=== PATIENT | female | born 2005 | race Caucasian/White ===

== ENCOUNTER 2025-04-30 17:51 | Emergency (ER) | payer OTHER ==
--- NOTE | 2025-04-30 18:37 | ED ---
Nausea/Vomiting/Diarrhea HPI - General Chief complaint: Nausea/Vomiting/Diarrhea Stated complaint: Vomiting, blood in vomit Time Seen by Provider: 04/30/25 18:05 Source: patient, family, RN notes reviewed Mode of arrival: ambulatory Limitations: no limitations - History of Present Illness Initial comments: This is a 19-year-old female with no reported medical conditions presenting to emergency room with mother with referral from urgent care for concerns of persistent nausea and vomiting over the past 48 hours. Patient states that she is unable to keep down foods and liquids and is concerned that she is dehydrated she has not been urinating. she endorses epigastric abdominal pain before and after emesis. Denies previous surgeries of the abdomen. Denies urinary complaints, bowel habit changes, fevers, chills, cough, rhinorrhea, congestion. She has been taking her mother Zofran that has been mildly helping with her nausea and vomiting. - Related Data Previous Rx's Medication Instructions Recorded Ondansetron Odt [Zofran Odt] 4 mg PO Q8HR PRN #21 tab 04/30/25 Allergies Allergy/AdvReac Type Severity Reaction Status Date / Time No Known Allergies Allergy Verified 04/30/25 18:22 Review of Systems ROS Statement: Those systems with pertinent positive or pertinent negative responses have been documented in the HPI. ROS Other: All systems not noted in ROS Statement are negative. Past Medical History Past Medical History: No Reported History History of Any Multi-Drug Resistant Organisms: None Reported Additional Past Surgical History / Comment(s): cystectomy Past Psychological History: No Psychological Hx Reported Smoking Status: Vaper Past Alcohol Use History: None Reported Past Drug Use History: Marijuana General Exam - General Exam Comments Initial Comments: Visual Physical Exam Vital signs reviewed General: Well-appearing, nontoxic, no acute distress. Head: Normocephalic, atraumatic Eyes: PERRLA, EOMI ENT: Airway patent Chest: Nonlabored breathing Skin: No visual rash, normal skin tone Neuro: Alert and oriented 3 Musculoskeletal: No gross abnormalities Limitations: no limitations Respiratory exam: Present: normal lung sounds bilaterally. Absent: respiratory distress, wheezes, rales, rhonchi, stridor Cardiovascular Exam: Present: regular rate, normal rhythm, normal heart sounds. Absent: systolic murmur, diastolic murmur, rubs, gallop, clicks GI/Abdominal exam: Present: soft, tenderness (Epigastric), normal bowel sounds. Absent: distended, guarding, rebound, rigid Extremities exam: Present: normal inspection, full ROM, normal capillary refill. Absent: tenderness, pedal edema, joint swelling, calf tenderness Back exam: Present: normal inspection. Absent: CVA tenderness (R), CVA tenderness (L) Course Vital Signs 04/30/25 04/30/25 04/30/25 18:15 21:05 21:06 Temperature 98.2 F 99.3 F Pulse Rate 102 H 81 Respiratory 22 18 Rate Blood Pressure 110/74 112/78 O2 Sat by Pulse 100 100 Oximetry Medical Decision Making - Medical Decision Making Was pt. sent in by a medical professional or institution (, PA, C [employer] DEVELOPER, urgent care, hospital, or long term...) When possible be specific @ -Patient is advised by urgent care report to the emergency department for the evaluation of persistent nausea and vomiting. Did you speak to anyone other than the patient for history (EMS, parent, family, police, friend...)? What history was obtained from this source @ -Mother states that she has been giving the patient her Zofran to help with intermittent nausea. Did you review nursing and triage notes (agree or disagree)? Why? @ -I reviewed and agree with nursing and triage notes Were old charts reviewed (outside hosp., previous admission, EMS record, old EKG, old radiological studies, urgent care reports/EKG's, long term records)? Report findings @ -No old charts were reviewed Differential Diagnosis (chest pain, altered mental status, abdominal pain women, abdominal pain men, vaginal bleeding, weakness, fever, dyspnea, syncope, headache, dizziness, GI bleed, back pain, seizure, CVA, palpatations, mental health, musculoskeletal)? @ -Differential Abdominal Pain Women: Appendicitis, Cholecystitis, diverticulosis, ischemic bowel, pancreatitis, hepatitis, UTI, gastroenteritis, AAA, incarcerated hernia, bowel obstruction, constipation, inflammatory bowel, hepatitis, peptic ulcer disease, splenic infarction, perforated viscus, vulvitis, ovarian torsion, PID, kidney stone, placenta abruption, this is not meant to be an all-inclusive list EKG interpreted by me (3pts min.). @ -None X-rays interpreted by me (1pt min.). @ -X-ray KUB nonobstructive bowel gas pattern. CT interpreted by me (1pt min.). @ -None done U/S interpreted by me (1pt. min.). @ -None done What testing was considered but not performed or refused? (CT, X-rays, U/S, labs)? Why? @ -None What meds were considered but not given or refused? Why? @ -None Did you discuss the management of the patient with other professionals (professionals i.e. DrRadha, PA, C [employer] DEVELOPER, lab, RT, psych nurse, social sciences chair, ordering box operator, teacher, radio division officer, senior case manager)? Give summary @ -No Was smoking cessation discussed for >3mins.? @ -No Was critical care preformed (if so, how long)? @ -No Were there social determinants of health that impacted care today? How? (Homelessness, low income, unemployed, alcoholism, drug addiction, transportation, low edu. Level, literacy, decrease access to med. care, senior care, rehab)? @ -No Was there de-escalation of care discussed even if they declined (Discuss DNR or withdrawal of care, Hospice)? DNR status @ -No What co-morbidities impacted this encounter? (DM, HTN, Smoking, COPD, CAD, Cancer, CVA, ARF, Chemo, Hep., AIDS, mental health diagnosis, sleep apnea, morbid obesity)? @ -None Was patient admitted / discharged? Hospital course, mention meds given and route, prescriptions, significant lab abnormalities, going to OR and other pertinent info. @ -Discharge. 19-year-old female presenting to emergency room with referral from urgent care for concern plaints of persistent nausea and vomiting over the past 48 hours. Overall patient is well-appearing in no signs distress on my evaluation. Patient has mild epigastric tenderness palpation. She is provided with IV fluids in addition to Protonix and Zofran. Patient's laboratory testing is essentially unremarkable. Urine is concerning for dehydration with 4+ ketones however no signs infection. hCG is negative. Patient is positive for marijuana. Negative for COVID, flu, RSV. X-ray of the abdomen is unremarkable. On reevaluation after medications patient states that she is feeling well. Recommend that she discontinue marijuana use and follow a liquid diet over the next 24 hours. She is provided with prescription for Zofran. Case discussed with Dr. Bayudan Undiagnosed new problem with uncertain prognosis? @ -No Drug Therapy requiring intensive monitoring for toxicity (Heparin, Nitro, Insulin, Cardizem)? @ -No Were any procedures done? @ -No Diagnosis/symptom? @ -Acute nausea and vomiting Acute, or Chronic, or Acute on Chronic? @ -Acute Uncomplicated (without systemic symptoms) or Complicated (systemic symptoms)? @ -Uncomplicated Side effects of treatment? @ -No Exacerbation, Progression, or Severe Exacerbation? @ -No Poses a threat to life or bodily function? How? (Chest pain, [place], [place], pneumonia, PE, COPD, DKA, ARF, appy, cholecystitis, CVA, Diverticulitis, Homicidal, Suicidal, threat to staff... and all critical care pts) @ -No - Lab Data Result diagrams: 04/30/25 19:31 04/30/25 19:31 Lab Results 04/30/25 04/30/25 04/30/25 Range/Units 19:31 19:31 21:05 WBC 10.84 H (4.50-10.00) 10*3/uL RBC 5.24 H (4.10-5.20) 10*6/uL Hgb 11.0 L (12.0-15.0) g/dL Hct 34.0 L (37.2-46.3) % MCV 64.9 L (80.0-97.0) fL MCH 21.0 L (27.0-32.0) pg MCHC 32.4 (32.0-37.0) g/dL Plt Count 252 (140-440) 10*3/uL Immature Gran % (Auto) 0.5 % Neutrophils % 83.3 % Lymphocytes % 10.0 % Monocytes % 5.8 % Eosinophils % 0.1 % Basophils % 0.3 % Immature Gran # 0.05 H (0.00-0.04) 10*3/uL Neutrophils # 9.04 H (1.80-7.70) 10*3/uL Lymphocytes # 1.08 (0.90-5.00) 10*3/uL Monocytes # 0.63 (0.20-1.00) 10*3/uL Eosinophils # 0.01 L (0.04-0.35) 10*3/uL Basophils # 0.03 (0.00-0.10) 10*3/uL Immature Plt Fraction 7.8 H (1.1-6.1) % Sodium 143 (137-145) mmol/L Potassium 3.4 L (3.5-5.1) mmol/L Chloride 103 (98-107) mmol/L Carbon Dioxide 23 (22-30) mmol/L Anion Gap 17 mmol/L BUN 11 (7-17) mg/dL Creatinine 0.69 (0.52-1.04) mg/dL Est GFR (CKD-EPI)AfAm >90 (>60 ml/min/1.73 sqM) Est GFR (CKD-EPI)NonAf >90 (>60 ml/min/1.73 sqM) Glucose 103 H (74-99) mg/dL Calcium 10.5 H (8.4-10.2) mg/dL Magnesium 2.1 (1.6-2.3) mg/dL Total Bilirubin 2.4 H (0.2-1.3) mg/dL AST 26 (14-36) U/L ALT 24 (4-34) U/L Alkaline Phosphatase 51 (38-126) U/L Total Protein 8.5 H (6.3-8.2) g/dL Albumin 5.7 H (3.5-5.0) g/dL Lipase 127 (23-300) U/L Urine Color Urine Appearance (Clear) Urine pH (5.0-8.0) Ur Specific Meta (1.001-1.035) Urine Protein (Negative) Urine Glucose (UA) (Negative) Urine Ketones (Negative) Urine Blood (Negative) Urine Nitrite (Negative) Urine Bilirubin (Negative) Urine Urobilinogen (<2.0) mg/dL Ur Leukocyte Esterase (Negative) Urine RBC (0-5) /hpf Urine WBC (0-5) /hpf Ur Squamous Epith Cells (0-4) /hpf Urine Mucus (None) /hpf Urine HCG, Qual (Not Detectd) Urine Opiates Screen (NotDetected) Ur Oxycodone Screen (NotDetected) Urine Methadone Screen (NotDetected) Ur Barbiturates Screen (NotDetected) U Tricyclic Antidepress (NotDetected) Ur Phencyclidine Scrn (NotDetected) Ur Amphetamines Screen (NotDetected) U Methamphetamines Scrn (NotDetected) U Benzodiazepines Scrn (NotDetected) Urine Cocaine Screen (NotDetected) U Marijuana (THC) Screen (NotDetected) Influenza Type A (PCR) Not Detected (Not Detectd) Influenza Type B (PCR) Not Detected (Not Detectd) RSV (PCR) Not Detected (Not Detectd) SARS-CoV-2 (PCR) Not Detected (Not Detectd) 04/30/25 04/30/25 04/30/25 Range/Units 21:19 21:19 21:19 WBC (4.50-10.00) 10*3/uL RBC (4.10-5.20) 10*6/uL Hgb (12.0-15.0) g/dL Hct (37.2-46.3) % MCV (80.0-97.0) fL MCH (27.0-32.0) pg MCHC (32.0-37.0) g/dL Plt Count (140-440) 10*3/uL Immature Gran % (Auto) % Neutrophils % % Lymphocytes % % Monocytes % % Eosinophils % % Basophils % % Immature Gran # (0.00-0.04) 10*3/uL Neutrophils # (1.80-7.70) 10*3/uL Lymphocytes # (0.90-5.00) 10*3/uL Monocytes # (0.20-1.00) 10*3/uL Eosinophils # (0.04-0.35) 10*3/uL Basophils # (0.00-0.10) 10*3/uL Immature Plt Fraction (1.1-6.1) % Sodium (137-145) mmol/L Potassium (3.5-5.1) mmol/L Chloride (98-107) mmol/L Carbon Dioxide (22-30) mmol/L Anion Gap mmol/L BUN (7-17) mg/dL Creatinine (0.52-1.04) mg/dL Est GFR (CKD-EPI)AfAm (>60 ml/min/1.73 sqM) Est GFR (CKD-EPI)NonAf (>60 ml/min/1.73 sqM) Glucose (74-99) mg/dL Calcium (8.4-10.2) mg/dL Magnesium (1.6-2.3) mg/dL Total Bilirubin (0.2-1.3) mg/dL AST (14-36) U/L ALT (4-34) U/L Alkaline Phosphatase (38-126) U/L Total Protein (6.3-8.2) g/dL Albumin (3.5-5.0) g/dL Lipase (23-300) U/L Urine Color Yellow Urine Appearance Cloudy H (Clear) Urine pH 6.5 (5.0-8.0) Ur Specific Meta 1.019 (1.001-1.035) Urine Protein 1+ H (Negative) Urine Glucose (UA) Negative (Negative) Urine Ketones 4+ H (Negative) Urine Blood Trace H (Negative) Urine Nitrite Negative (Negative) Urine Bilirubin Negative (Negative) Urine Urobilinogen <2.0 (<2.0) mg/dL Ur Leukocyte Esterase Moderate H (Negative) Urine RBC 8 H (0-5) /hpf Urine WBC 5 (0-5) /hpf Ur Squamous Epith Cells 8 H (0-4) /hpf Urine Mucus Few H (None) /hpf Urine HCG, Qual Not Detected (Not Detectd) Urine Opiates Screen Not Detected (NotDetected) Ur Oxycodone Screen Not Detected (NotDetected) Urine Methadone Screen Not Detected (NotDetected) Ur Barbiturates Screen Not Detected (NotDetected) U Tricyclic Antidepress Not Detected (NotDetected) Ur Phencyclidine Scrn Not Detected (NotDetected) Ur Amphetamines Screen Not Detected (NotDetected) U Methamphetamines Scrn Not Detected (NotDetected) U Benzodiazepines Scrn Not Detected (NotDetected) Urine Cocaine Screen Not Detected (NotDetected) U Marijuana (THC) Screen Detected H (NotDetected) Influenza Type A (PCR) (Not Detectd) Influenza Type B (PCR) (Not Detectd) RSV (PCR) (Not Detectd) SARS-CoV-2 (PCR) (Not Detectd) Disposition Clinical Impression: Nausea and vomiting Disposition: HOME SELF-CARE Condition: Stable Instructions (If sedation given, give patient instructions): Acute Nausea and Vomiting (ED) Additional Instructions: Please return to the Emergency Department if symptoms worsen or any other concerns. Prescriptions: Ondansetron Odt [Zofran Odt] 4 mg PO Q8HR PRN #21 tab PRN Reason: Nausea Is patient prescribed a controlled substance at d/c from ED?: No Referrals: None,Stated [Primary Care Provider] - 1-2 days Time of Disposition: 22:06
[2025-04-30] MEDS: SODIUM CHLORIDE 0.9% 2,000 ML IV STA (19:30)
[2025-04-30] MEDS: ONDANSETRON 4 MG/2 ML VIAL IVP STA ×2 (19:32→21:50)
[2025-04-30] MEDS: PANTOPRAZOLE 40 MG/10 ML VIAL IVP STA (19:34)
[2025-04-30 19:43] LABS: Basophils # (A) 0.03 10*3/uL (0.00-0.10); Basophils % (A) 0.3 %; Eosinophils # (A) 0.01 10*3/uL (0.04-0.35); Eosinophils % (A) 0.1 %; Immature Platelet Fraction 7.8 % (1.1-6.1); Lymphocytes # (A) 1.08 10*3/uL (0.90-5.00); MCHC 32.4 g/dL (32.0-37.0); MCV 64.9 fL (80.0-97.0); Monocytes # (A) 0.63 10*3/uL (0.20-1.00); Monocytes % (A) 5.8 %; Neutrophils # (A) 9.04 10*3/uL (1.80-7.70); Neutrophils % (A) 83.3 %; Platelet Count 252 10*3/uL (140-440); RBC 5.24 10*6/uL (4.10-5.20); RDW 15.7 % (11.5-14.5); WBC 10.84 10*3/uL (4.50-10.00)
[2025-04-30 19:55] LABS: ALT 24 U/L (4-34); AST 26 U/L (14-36); African American GFR (CKD) >90 (>60 ml/min/1.73 sqM); Albumin 5.7 g/dL (3.5-5.0); Alkaline Phosphatase 51 U/L (38-126); Anion Gap 17 mmol/L; Blood Urea Nitrogen 11 mg/dL (7-17); Calcium 10.5 mg/dL (8.4-10.2); Carbon Dioxide 23 mmol/L (22-30); Chloride 103 mmol/L (98-107); Glucose 103 mg/dL (74-99); Lipase 127 U/L (23-300); Magnesium 2.1 mg/dL (1.6-2.3); Non-African American GFR(CKD) >90 (>60 ml/min/1.73 sqM); Potassium 3.4 mmol/L (3.5-5.1); Sodium 143 mmol/L (137-145); Total Bilirubin 2.4 mg/dL (0.2-1.3); Total Protein 8.5 g/dL (6.3-8.2)
[2025-04-30] MEDS: METOCLOPRAMIDE 5 MG/ML 2 ML VIAL IVP STA (20:32)
--- NOTE | 2025-04-30 20:51 | XR ---
EXAMINATION TYPE: XR KUB DATE OF EXAM: 04/30/2025 8:46 PM COMPARISON: None. CLINICAL INDICATION: Female, 19 years old with history of N/V, pain; PHH, pain TECHNIQUE: One radiographic view of the abdomen was obtained. FINDINGS: The bowel gas pattern is nonspecific without dilated loops of small or large bowel. . Fecal material and gas are demonstrated throughout the colon and rectum. There is no evidence for organomegaly or pneumoperitoneum. The osseous structures are intact. No ab normal calcifications are present. Mild levoconvex curvature of the lumbar spine centered at L2-L3. IMPRESSION: Nonobstructive bowel gas pattern without radiographic evidence for acute process. [facility], , 04/30/2025 8:48 PM
[2025-04-30 21:06] VITALS: TEMP 99.3
[2025-04-30 21:10] VITALS: BP 112/78; PULSE 81; RESP 18
[2025-04-30 21:40] LABS: Appearance,Urine Cloudy (Clear); Bilirubin,Urine Negative (Negative); Blood,Urine Trace (Negative); Color,Urine Yellow; Glucose,Urine (UA) Negative (Negative); Ketones,Urine 4+ (Negative); Leukocyte Esterase,Urine Moderate (Negative); Mucus,Urine Few /hpf; Nitrite,Urine Negative (Negative); PH, Urine 6.5 (5.0-8.0); Protein,Urine 1+ (Negative); RBC,Urine 8 /hpf (0-5); Specific Gravity,Urine 1.019 (1.001-1.035); Squamous Epithelial Cell,Urine 8 /hpf (0-4); Urobilinogen,Urine <2.0 mg/dL (<2.0); WBC,Urine 5 /hpf (0-5)
[2025-04-30 21:51] LABS: Influenza A Not Detected (Not Detectd); Influenza B Not Detected (Not Detectd); RSV Not Detected (Not Detectd)
[2025-04-30 21:53] LABS: Amphetamine Screen,Urine Not Detected (NotDetected); Barbiturate Screen,Urine Not Detected (NotDetected); Benzodiazepines Screen,Urine Not Detected (NotDetected); Cocaine Screen,Urine Not Detected (NotDetected); Methadone Screen, Urine Not Detected (NotDetected); Opiate Screen,Urine Not Detected (NotDetected); Oxycodone Screen, Urine Not Detected (NotDetected); Phencyclidine Screen,Urine Not Detected (NotDetected); Tricyclic Antidepressant,Urine Not Detected (NotDetected); Urn Cannabinoid Scrn Detected (NotDetected)
== END 2025-04-30 22:17 | disposition home or self-care (01) ==
LOC: EC 17:51
DX: R11.2 Nausea with vomiting, unspecified (principal); F17.290 Nicotine dependence, other tobacco product, uncomplicated
CPT/HCPCS: 36415; 80053; 83690; 83735; 85025; 81001; 81025; 80306; 87636; 74018; 99284; 96374; 96375 ×2; 96361 ×2; 96376; J2765; J2405; J2470